=== PATIENT | male | born 1990 | race Caucasian/White ===

== ENCOUNTER 2017-12-26 15:53 | Emergency (ER) | payer MEDICAID ==
[~2017-12-26] VITALS: Ht 165.1 cm; Wt 69.4 kg
[2017-12-26 16:03] VITALS: Ht 165.1 cm; Wt 69.4 kg
[2017-12-26 19:26] VITALS: BP 144/88
== END 2017-12-26 19:26 | disposition home or self-care (01) ==
LOC: ED 15:53
DX: T15.01XA Foreign body in cornea, right eye, initial encounter (principal); X58.XXXA Exposure to other specified factors, initial encounter; Y93.89 Activity, other specified; Y92.89 Other specified places as the place of occurrence of the external cause; Y99.8 Other external cause status